=== PATIENT | male | born 1995 | race Two or more races ===

== ENCOUNTER 2024-02-17 10:16 | Emergency (ER) | payer OTHER ==
[2024-02-17 10:32] VITALS: BP 106/60; PULSE 68; RESP 16; TEMP 98.2; BMI 32.3
[2024-02-17] MEDS ORDERED: KETOROLAC TROMETHAMINE 15 MG/ML VIAL ONE (11:34)
[2024-02-17] MEDS: KETOROLAC TROMETHAMINE 15 MG/ML VIAL IVPUSH ONE (12:01)
[2024-02-17 12:24] LABS: BASO % 0.9 % (0-2.0); EOS % 2.7 % (0-4.5); HEMATOCRIT 44.6 % (35.4-49); HEMOGLOBIN 14.7 GM/dL (11.7-16.9); LYMPH % 32.5 % (8-40); MCH 28.6 pg (25.7-33.7); MEAN CELL VOLUME 86.6 fl (80-96); MEAN PLT VOLUME 7.6 fl (7.5-11.1); NEUT % 54.9 % (42.8-82.8); PLATELET COUNT 341 10^3/uL (134-434); RBC 5.15 M/mm3 (4.00-5.60); RDW 14.6 % (11.9-15.9); WHITE BLOOD COUNT 8.5 K/mm3 (4.0-10.0)
[2024-02-17 12:45] LABS: POTASSIUM 3.9 mmol/L (3.5-5.1)
[2024-02-17 12:48] LABS: ALBUMIN 4.2 g/dl (3.4-5.0); CALCIUM 8.9 mg/dL (8.5-10.1)
[2024-02-17 12:49] LABS: BLOOD UREA NITROGEN 11.7 mg/dL (7-18); MAGNESIUM 2.2 mg/dL (1.8-2.4)
[2024-02-17 12:52] LABS: CREATININE 0.7 mg/dL (0.55-1.3)
[2024-02-17 12:53] LABS: BILIRUBIN,TOTAL 0.3 mg/dL (0.2-1); TOT PROT 7.6 g/dl (6.4-8.2)
[2024-02-17 13:05] LABS: ACTIVATED PTT 39.7 SECONDS (25.2-36.5); INR 0.97 (0.83-1.09)
[2024-02-17 13:41] LABS: HIV INTERPRETATION NEGATIVE (NEGATIVE)
== END 2024-02-17 13:25 | disposition home or self-care (01) ==
LOC: JER 10:16
PROC: 3E0333Z Introduction of Anti-inflammatory into Peripheral Vein, Percutaneous Approach (ICD-10-PCS; principal; 2024-02-17)
DX: R07.89 Other chest pain (principal); R00.2 Palpitations; R06.02 Shortness of breath
CPT/HCPCS: 36415; 71046-TC-FY; 80053; 83735; 84484; 85025; 85610; 85730; 86803; 87389; 93005; 93010; 99285-25